=== PATIENT | female | born 1985 | race Caucasian/White ===

== ENCOUNTER → 2020-08-26 17:44 | Outpatient (BNVA) | payer OTHER, SELFPAY | PROVIDERS: Family Provider Internal Medicine; PCP Family Medicine; Visit Provider Nurse Practitioner Family | DX: Z20.828 Contact with and (suspected) exposure to other viral communicable diseases (principal) | CPT/HCPCS: 87635 ==

== ENCOUNTER 2021-12-07 09:02 | Outpatient (CLI) | payer OTHER, SELFPAY ==
--- NOTE | 2021-12-07 09:30 | MM_ITS ---
WS: [id number] BILATERAL DIAGNOSTIC, DIGITAL MAMMOGRAM WITH CAD RIGHT breast ultrasound, limited HISTORY: N63.10 - Unspecified lump in the right breast COMPARISON: None available. Technique: CC, MLO and ML views. Spot compression RIGHT CC and MLO. Breast composition: The breasts are heterogeneously dense, which may obscure small masses. No defini te abnormalities noted on the 6:00 axis of the RIGHT breast in the area of the palpable abnormality. This dense tissue may be obscuring a mass. No distortion. RIGHT breast ultrasound, limited. At 6:00, 1 cm from the nipple is a mass corresponding to the palpable abnormality. Mass is nearly iso echoic to the adjacent soft tissues. This mass measures 18 x 6 mm. Not a typical appearance of a fibr oadenoma. No increased vascularity. There is an additional small benign-appearing cyst at 6:00 at the areolar. MM/[place] [id number] IMPRESSION: BI-RADS: 4-Suspicious Finding-Biopsy Should Be Considered FOLLOW UP: Biopsy Recommended Biopsy recommended of the hypoechoic mass in the RIGHT breast at 6:00. This cor responds to the palpable abnormality. Differential includes a focal area of fib roglandular tissue versus fibroadenoma. Favor this is probably benign but shoul d undergo biopsy to confirm benignity.
--- NOTE | 2021-12-07 10:15 | US_ITS ---
WS: [id number] BILATERAL DIAGNOSTIC, DIGITAL MAMMOGRAM WITH CAD RIGHT breast ultrasound, limited HISTORY: N63.10 - Unspecified lump in the right breast COMPARISON: None available. Technique: CC, MLO and ML views. Spot compression RIGHT CC and MLO. Breast composition: The breasts are heterogeneously dense, which may obscure small masses. No defini te abnormalities noted on the 6:00 axis of the RIGHT breast in the area of the palpable abnormality. This dense tissue may be obscuring a mass. No distortion. RIGHT breast ultrasound, limited. At 6:00, 1 cm from the nipple is a mass corresponding to the palpable abnormality. Mass is nearly iso echoic to the adjacent soft tissues. This mass measures 18 x 6 mm. Not a typical appearance of a fibr oadenoma. No increased vascularity. There is an additional small benign-appearing cyst at 6:00 at the areolar. US/US breast RT limited* [id number] IMPRESSION: BI-RADS: 4-Suspicious Finding-Biopsy Should Be Considered FOLLOW UP: Biopsy Recommended Biopsy recommended of the hypoechoic mass in the RIGHT breast at 6:00. This cor responds to the palpable abnormality. Differential includes a focal area of fib roglandular tissue versus fibroadenoma. Favor this is probably benign but shoul d undergo biopsy to confirm benignity.
== END 2021-12-07 09:03 | disposition home or self-care (01) ==
LOC: RADSHAW 09:09
PROVIDERS: PCP Family Medicine; Visit Provider Nurse Practitioner Women's Health
DX: N63.15 Unspecified lump in the right breast, overlapping quadrants
CPT/HCPCS: 76642; 77066

== ENCOUNTER 2021-12-23 11:54 | Outpatient (CLI) | payer OTHER, SELFPAY ==
--- NOTE | 2021-12-23 13:00 | US_ITS ---
WS: [id number] ULTRASOUND-GUIDED RIGHT BREAST BIOPSY CLINICAL INFORMATION: N63.10 - Unspecified lump in the right breast, unspecifie... COMPARISON: December 07, 2021 FINDINGS: The procedure including risks, benefits, and complications were discussed with the patient who agreed to proceed. Using sterile technique patient was prepped and draped in the usual sterile fashion. Aft er 1% lidocaine utilizing real-time ultrasound guidance 14-gauge cores were obtained of the right aspen ast lesion at the 6 o'clock position. Subsequently a titanium clip was placed in the biopsy cavity. N o immediate complications. Pathology demonstrates A. Breast -Benign breast tissue with fibrocystic and fibroadenomatoid changes. -Focal duct ectasia. -No malignancy identified. US/[place] [id number] IMPRESSION: 1. Uncomplicated ultrasound-guided right breast biopsy. 2. The pathology demonstrates benign breast tissue with fibrocystic and fibroa denomatoid changes. No malignancy identified. Findings are benign. 3. Recommend 6 month follow-up RIGHT diagnostic mammography and ultrasound pos tbiopsy. Then, assuming no change, proceed to annual screening mammography age 41. BI-RADS: 2-Benign FOLLOW UP: 6 Month Follow-up
== END 2021-12-23 11:55 | disposition home or self-care (01) ==
PROVIDERS: PCP Family Medicine; Visit Provider Nurse Practitioner Women's Health
DX: N63.15 Unspecified lump in the right breast, overlapping quadrants (principal); N60.41 Mammary duct ectasia of right breast
CPT/HCPCS: 19083; 88305